=== PATIENT | female | born 2000 | race African-American/Black ===

== ENCOUNTER 2024-03-26 00:52 | Inpatient (IN) | payer OTHER ==
[~2024-03-26] VITALS: Ht 160 cm; Wt 100.2 kg
[2024-03-27 01:00] VITALS: BP 111/69; PULSE 102; RESP 18; TEMP 99; O2SAT 98
[2024-03-27 01:41] VITALS: BP 111/69; PULSE 102; RESP 18; TEMP 99; O2SAT 98
[2024-03-27] MEDS ORDERED: SUCR1SUS26 PO (01:58)
[2024-03-27] MEDS ORDERED: CYCL-611 PO (01:58)
[2024-03-27] MEDS ORDERED: FAMO-12 PO (01:58)
[2024-03-27 03:36] LABS: Basophils # (auto) 0.1 10 ^3/uL (0-0.2); Basophils % (auto) 0.9 % (0.0-2.0); Eosinophils # (auto) 0.1 10 ^3/uL (0-0.8); Lymphocytes # (auto) 2.8 10 ^3/uL (0.4-5.4); Mean Corpuscular Hemoglobin 20.1 pg (28.0-32.0); Monocytes # (auto) 0.5 10 ^3/uL (0-1.3); Monocytes % (auto) 6.1 % (0.0-12.0); Neutrophils # (auto) 5.2 10 ^3/uL (1.6-8.6)
[2024-03-27 03:37] LABS: Eosinophils % (auto) 1.1 % (0.0-7.0); Hematocrit 23.3 % (36.0-46.0); Hemoglobin 7.1 g/dL (12.2-16.2); Lymphocytes % (auto) 32.5 % (10.0-50.0); Mean Corpuscular Hgb Conc. 30.5 g/dL (32.0-36.0); Neutrophils % (auto) 59.4 % (37.0-80.0); Red Blood Cells 3.53 10^6/uL (4.0-5.20); Red Cell Distribution Width 18.4 % (11.8-14.3); White Blood Cell 8.7 10^3/uL (4.4-10.8)
[2024-03-27 03:46] LABS: Alanine Aminotransferase 13 U/L (7-40); Albumin 4.3 g/dL (3.2-4.8); Alkaline Phosphatase 50 U/L (46-116); Anion Gap 9 (5-15); Aspartate Aminotransferase 14 U/L (13-40); Bilirubin, Total 0.4 mg/dL (0.2-1.0); Calcium 8.8 mg/dL (8.7-10.4); Carbon Dioxide 21 mmol/L (20-30); Chloride 106 mmol/L (98-107); Glucose 89 mg/dL (74-106); Potassium 3.6 mmol/L (3.5-5.1); Sodium 136 mmol/L (136-145); Total Protein 7.8 g/dL (5.7-8.2)
[2024-03-27 03:49] LABS: BUN/Creatinine Ratio 8.2 (10.0-20.0); Blood Urea Nitrogen < 5 mg/dL (9-23)
[2024-03-27 04:37] LABS: Urine Bacteria FEW /hpf (None Seen); Urine Blood Negative /uL (Negative); Urine Clarity Clear (Clear); Urine Color Light-Yellow (Yellow); Urine Mucus FEW (None Seen); Urine Protein, UAD TRACE (Negative); Urine Specific Gravity 1.026 (1.001-1.035); Urine Urobilinogen Normal (Negative); Urine WBC 1 /hpf (0 - 5)
[2024-03-27] MEDS ORDERED: ACETAMINOPHEN 325 MG TAB PO PRN (04:45)
[2024-03-27] MEDS ORDERED: NITROGLYCERIN 0.4 MG SL TAB SL PRN (04:45)
[2024-03-27] MEDS ORDERED: ONDANSETRON HCL 4 MG/2 ML VIAL IV PRN (04:45)
[2024-03-27 04:48] LABS: Hypochromia Marked; Platelet Estimate Adequate
[2024-03-27 04:49] LABS: Ovalocytes FEW
[2024-03-27 05:00] VITALS: BP 116/68; PULSE 104; RESP 20; TEMP 99.2; O2SAT 99
[2024-03-27] MEDS: MORPHINE SULFATE INJ 2 MG/ml SYRG IV PRN (05:20)
[2024-03-27 08:53] VITALS: BP 108/52; PULSE 79; RESP 16; TEMP 98.3; O2SAT 97
[2024-03-27 09:14] LABS: Amphetamine Screen, Urine Neg (NEGATIVE); Barbiturate Scree,Urine Neg (NEGATIVE); Benzodiazephine Screen, Urine Neg (NEGATIVE); Cocaine Screen, Urine Neg (NEGATIVE); Opiate Scree,Urine Pos (NEGATIVE)
[2024-03-27 09:15] LABS: Cannabinoid Screen, Urine Pos (NEGATIVE); Phencyclidine Screen, Urine Neg (NEGATIVE)
[2024-03-27 12:53] VITALS: BP 122/60; PULSE 99; RESP 16; TEMP 98.2; O2SAT 98
== END 2024-03-27 14:30 | disposition left against medical advice (07) | DRG 832 ==
LOC: EAST 03-27 00:37
PROVIDERS: ADMIT Internal Medicine; ATTEND Internal Medicine
DX: O20.8 Other hemorrhage in early pregnancy (principal); D62 Acute posthemorrhagic anemia; E66.01 Morbid (severe) obesity due to excess calories; O99.211 Obesity complicating pregnancy, first trimester; O99.011 Anemia complicating pregnancy, first trimester; O21.0 Mild hyperemesis gravidarum; Z87.11 Personal history of peptic ulcer disease; Z91.013 Allergy to seafood; Z91.018 Allergy to other foods; Z3A.01 Less than 8 weeks gestation of pregnancy
CPT/HCPCS: 36415; 76801; 76817; 80053; 80307; 81001; 84443; 84484; 84702; 85025; 86850; 86900; 86901; 86920; 93005; G0378